=== PATIENT | male | born 1955 | race Caucasian/White ===

== ENCOUNTER 2020-02-13 19:50 | Emergency (ER) | payer MEDICARE, OTHER ==
[2020-02-13] MEDS ORDERED: Aspirin 81 MG Tab.Chew PO ONE (19:54)
[2020-02-13] MEDS ORDERED: Metoprolol Tartrate 5 MG in Sodium Chloride 0.9% 50 ML IV ONE (19:54)
[2020-02-13] MEDS ORDERED: Metoprolol Tartrate 5 MG/5 ML SDV IVPUSH ONE ×3 (19:55→20:30)
[2020-02-13] MEDS ORDERED: Nitroglycerin 0.4 MG Tab.SL SL ONE (19:56)
[2020-02-13] MEDS: Sodium Chloride 0.9% 10 ML Syringe FLUSH PRN ×2 (20:13→21:21)
[2020-02-13] MEDS ORDERED: Diltiazem 25 MG/5 ML SDV IVPUSH STA (20:54)
[2020-02-13] MEDS ORDERED: Ketorolac 15 MG/ML SDV IVPUSH STA (21:10)
--- NOTE | 2020-02-13 21:33 | EDM.PDOC ---
ED HPI GENERAL MEDICAL PROBLEM - General Chief Complaint: Chest Pain Stated Complaint: CHEST PAIN Time Seen by Provider: 02/13/20 20:15 Source of Information: Reports: Patient History Limitations: Reports: No Limitations - History of Present Illness INITIAL COMMENTS - FREE TEXT/NARRATIVE: Patient presented to the ED because of chest pain which started in the morning and got worse at night time. The pain is sharp and is worse with breathing,denies any dyspnea, N/V. Right Upper Chest Pain Score (Numeric/FACES): 4 - Related Data Allergies Allergy/AdvReac Type Severity Reaction Status Date / Time No Known Allergies Allergy Verified 02/13/20 20:26 Home Meds: Home Meds Losartan [Cozaar] 100 mg PO DAILY 02/13/20 [History] Losartan/Hydrochlorothiazide [Losartan-HCTZ 100-12.5 MG] 02/13/20 [History] Metoprolol Succinate [Toprol XL] 25 mg PO DAILY 02/13/20 [History] Nitroglycerin 0.4 mg PO PRN 02/13/20 [History] Rosuvastatin Calcium 10 mg PO DAILY 02/13/20 [History] Ticagrelor [Brilinta] 90 mg PO BID 02/13/20 [History] ED ROS GENERAL - Review of Systems Review Of Systems: See Below Constitutional: Reports: No Symptoms HEENT: Reports: No Symptoms Respiratory: Reports: No Symptoms Cardiovascular: Reports: Chest Pain Endocrine: Reports: No Symptoms GI/Abdominal: Reports: No Symptoms : Reports: No Symptoms Musculoskeletal: Reports: No Symptoms Skin: Reports: No Symptoms Neurological: Reports: No Symptoms Psychiatric: Reports: No Symptoms Hematologic/Lymphatic: Reports: No Symptoms ED EXAM, GENERAL - Physical Exam Exam: See Below Exam Limited By: No Limitations General Appearance: Alert, No Apparent Distress Eye Exam: Bilateral Eye: PERRL Ears: Normal External Exam, Normal Canal Nose: Normal Inspection, Normal Mucosa, No Blood Throat/Mouth: Normal Inspection, Normal Lips, Normal Teeth Head: Atraumatic, Normocephalic Neck: Normal Inspection, Supple, Non-Tender Respiratory/Chest: No Respiratory Distress, Lungs Clear, Normal Breath Sounds Cardiovascular: Normal Peripheral Pulses, Tachycardia, Irregularly Irregular GI/Abdominal: Normal Bowel Sounds, Soft, Non-Tender Back Exam: Normal Inspection, Full Range of Motion Extremities: Normal Inspection, Normal Range of Motion, Non-Tender Neurological: Alert, Oriented, CN II-XII Intact, Normal Cognition Psychiatric: Normal Affect, Normal Mood Course - Vital Signs Text/Narrative:: Labs reviewed and discussed with patient EKG-AFIB with RVR Trop-neg metoprolol 5 mg IV x3 doses cardizem 10 mg IV x1 dose and his HR went down from 140'90's and has been chest pain free. He is already on metoprolol succinate ER 25 mg PO daily so he will take an extra dose tonight. He is on brelynta for anticoagulation an will call his technology intern tomorrow as he might need adjustment of his metoprolol. Last Recorded V/S: Last Vital Signs Temp Pulse 86 02/13/20 21:23 Resp 20 02/13/20 20:00 BP 122/73 02/13/20 21:23 Pulse Ox 96 02/13/20 20:00 - Orders/Labs/Meds Orders: Active Orders 24 hr Category Date Time Status EKG Documentation Completion [RC] ASDIRECTED Care 02/13/20 19:54 Active Saline Lock Insert [OM.PC] Routine Oth 02/13/20 19:53 Ordered EKG 12 Lead [EK] Routine Ther 02/13/20 19:53 Ordered Labs: Laboratory Tests 02/13/20 02/13/20 02/13/20 Range/Units 19:57 19:57 19:57 WBC 7.9 (4.5-12.0) X10-3/uL RBC 4.35 (4.30-5.75) x10(6)uL Hgb 12.9 L (13.5-17.8) g/dL Hct 40.0 (30.0-51.3) % MCV 91.8 (80-96) fL MCH 29.7 (27.7-33.6) pg MCHC 32.4 (32.2-35.4) g/dL RDW 12.7 (11.5-15.5) % Plt Count 145 (125-369) X10(3)uL MPV 8.1 (7.4-10.4) fL Neut % (Auto) 84.6 H (46-82) % Lymph % (Auto) 6.6 L (13-37) % [place] % (Auto) 5.7 (4-12) % Eos % (Auto) 2 (1.0-5.0) % Baso % (Auto) 1 (0-2) % Neut # (Auto) 6.6 (1.6-8.3) # Lymph # (Auto) 0.5 L (0.6-5.0) # [place] # (Auto) 0.5 (0.0-1.3) # Eos # (Auto) 0.2 (0.0-0.8) # Baso # (Auto) 0.1 (0.0-0.2) # Sodium 142 (135-145) mmol/L Potassium 3.5 (3.5-5.3) mmol/L Chloride 105 (100-110) mmol/L Carbon Dioxide 28 (21-32) mmol/L BUN 20 H (7-18) mg/dL Creatinine 1.5 H (0.70-1.30) mg/dL Est Cr Clr Drug Dosing TNP Estimated GFR (MDRD) 47 L (>60) BUN/Creatinine Ratio 13.3 (9-20) Glucose 211 H (80-116) mg/dL Calcium 8.7 (8.6-10.2) mg/dL Magnesium 2.0 (1.8-2.5) mg/dL Total Bilirubin 0.6 (0.1-1.3) mg/dL AST 9 (5-25) IU/L ALT 18 (12-36) U/L Alkaline Phosphatase 100 (56-112) IU/L Troponin I 22.7 (4.0-60.3) pg/mL NT-Pro-B Natriuret Pep 1579 H* (<=125) pg/mL Total Protein 7.2 (6.0-8.0) g/dL Albumin 3.8 (3.2-4.6) g/dL Globulin 3.4 g/dL Albumin/Globulin Ratio 1.1 Meds: Medications Discontinued Medications Generic Name Dose Route Start Last Admin Trade Name Freq PRN Reason Stop Dose Admin Aspirin 324 mg 02/13/20 19:54 02/13/20 20:07 Aspirin PO 02/13/20 19:55 324 mg ONETIME ONE Administration Diltiazem HCl 10 mg 02/13/20 20:54 02/13/20 21:00 Diltiazem IVPUSH 02/13/20 20:55 10 mg NOW STA Administration Metoprolol Tartrate 5 mg/ 55 mls @ 100 mls/hr 02/13/20 19:54 Sodium Chloride IV 02/13/20 20:26 ONETIME ONE Ketorolac Tromethamine 15 mg 02/13/20 21:10 02/13/20 21:18 Toradol IVPUSH 02/13/20 21:11 15 mg NOW STA Administration Metoprolol Tartrate 5 mg 02/13/20 19:55 02/13/20 20:14 Lopressor IVPUSH 02/13/20 19:56 5 mg ONETIME ONE Administration Metoprolol Tartrate 5 mg 02/13/20 19:56 02/13/20 20:05 Lopressor IVPUSH 02/13/20 19:57 5 mg ONETIME ONE Administration Metoprolol Tartrate 5 mg 02/13/20 20:30 02/13/20 20:37 Lopressor IVPUSH 02/13/20 20:31 5 mg ONETIME ONE Administration Nitroglycerin 0.4 mg 02/13/20 19:56 02/13/20 21:00 Nitrostat SL 02/13/20 19:57 Not Given ONETIME ONE Sodium Chloride 10 ml 02/13/20 19:53 02/13/20 21:21 Saline Flush FLUSH 10 ml ASDIRECTED PRN Administration Keep Vein Open Departure - Departure Time of Disposition: 21:30 Disposition: Home, Self-Care 01 Condition: Good Clinical Impression: Chest pain, New onset atrial fibrillation Instructions: Atrial Fibrillation, [id number] Referrals: Gardenia Jackson TELEPHONE INTERCEPTOR OPERATOR [Primary Care Provider] - Forms: ED Department Discharge Additional Instructions: Please read discharge instructions on Atrial Fib and chest pain Take an extra dose of your metoprolol succinate ER tonight Call your technology intern tomorrow and tell him that you have a New Onset Atrial Fib - My Orders Last 24 Hours: My Active Orders 02/13/20 19:53 Saline Lock Insert [OM.PC] Routine EKG 12 Lead [EK] Routine 02/13/20 19:54 EKG Documentation Completion [RC] ASDIRECTED - Assessment/Plan Last 24 Hours: My Active Orders 02/13/20 19:53 Saline Lock Insert [OM.PC] Routine EKG 12 Lead [EK] Routine 02/13/20 19:54 EKG Documentation Completion [RC] ASDIRECTED
--- NOTE | 2020-02-14 10:09 | CR ---
INDICATION: Chest pain. CHEST ONE VIEW: AP upright portable view of the chest, 02/13/2020-no comparison. Overlying EKG leads are noted. The heart is enlarged. Poor inspiration emphasizes the heart size however. Some linear density at the right lung base may represent thickening of the pleura at the minor fissure. It is difficult to exclude minimal patchy pneumonia and possibly pleuritis at the right lower lung field. Full inspiration PA and lateral views of the chest may be helpful when clinically possible. The aorta is tortuous with minimal calcification in the arch. IMPRESSION: 1. Cannot exclude pneumonia and pleuritis at the right lung base. 2. ASHD with cardiomegaly. MTDD
== END 2020-02-13 21:35 | disposition home or self-care (01) ==
LOC: FB.ED 19:50
DX: I48.91 Unspecified atrial fibrillation (principal); Z79.899 Other long term (current) drug therapy
CPT/HCPCS: 36415; 71045; 80053; 83735; 83880; 84484; 85025; 93005; 96374; 96375; 96376; 99285; A9270; J1885; J3490

== ENCOUNTER 2021-04-20 08:49 | Emergency (ER) | payer MEDICARE, OTHER ==
[2021-04-20] MEDS ORDERED: Ondansetron 4 MG/2 ML SDV IVPUSH ONE (09:28)
[2021-04-20] MEDS ORDERED: Sodium Chloride 0.9% 1,000 ML IV SCH (09:30)
--- NOTE | 2021-04-20 09:30 | PCM.EKG ---
#1 Interpretation EKG Date: 04/20/21 Time: 08:52 EKG Interpretation Comments: Sinus rhythm, rate 129, normal axis, no obvious ST-T segment abnormalities, poor baseline
--- NOTE | 2021-04-20 09:53 | EDM.PDOC ---
ED HPI GENERAL MEDICAL PROBLEM - General Stated Complaint: COVID SYMPTOMS Time Seen by Provider: 04/20/21 09:39 Source of Information: Reports: Patient History Limitations: Reports: No Limitations - History of Present Illness INITIAL COMMENTS - FREE TEXT/NARRATIVE: 65-year-old gentleman came to the emergency department due to a 12-day history of upper respiratory symptoms. He states that he attended his daughter's wedding and several days later began to have upper respiratory symptoms including cough, rhinorrhea, sore throat. The symptoms started on or about April 08, 2021. The last 4 to 5 days the patient has become more ill. He lost his sense of taste and smell and has not been able to eat or drink much. He has been feeling weak. He thinks that his daughters may have tested positive for COVID-19 recently. His , at home, also has similar symptoms. He does have a history of heart disease with STEMI. His last echocardiogram was December 2020. Ejection fraction was 60 to 65%. Review of past medical records shows that he does have a history of elevated BNP. Presentation today the patient is tachycardic, short of breath, diaphoretic, weak, has tremors. R flank Pain Score (Numeric/FACES): 2 - Related Data Allergies Allergy/AdvReac Type Severity Reaction Status Date / Time No Known Allergies Allergy Verified 04/20/21 09:29 Home Meds: Home Meds Losartan [Cozaar] 100 mg PO DAILY 02/13/20 [History] Metoprolol Succinate [Toprol XL] 100 mg PO DAILY 02/13/20 [History] Nitroglycerin 0.4 mg PO ASDIRECTED PRN 02/13/20 [History] Rosuvastatin Calcium 10 mg PO DAILY 02/13/20 [History] Ondansetron [Zofran ODT] 4 mg PO Q6H PRN #24 tab.dis 04/20/21 [Rx] Warfarin [Coumadin] 5 mg PO SUTUTHSA 04/20/21 [History] Warfarin [Coumadin] 7.5 mg PO MOWEFR 04/20/21 [History] amLODIPine [Norvasc] 5 mg PO DAILY 04/20/21 [History] Past Medical History Cardiovascular History: Reports: Stents Other Cardiovascular History: 4 stents placed 12/2019 Respiratory History: Reports: None - Past Surgical History Male Surgical History: Reports: Prostatectomy ED ROS GENERAL - Review of Systems Review Of Systems: See Below Constitutional: Reports: Fever, Chills, Malaise, Weakness Respiratory: Reports: Shortness of Breath, Pleuritic Chest Pain, Cough Cardiovascular: Reports: No Symptoms Endocrine: Reports: No Symptoms GI/Abdominal: Reports: Anorexia, Diarrhea : Reports: No Symptoms Musculoskeletal: Reports: Muscle Pain, Muscle Stiffness Skin: Reports: No Symptoms Neurological: Reports: Weakness Psychiatric: Reports: No Symptoms Hematologic/Lymphatic: Reports: No Symptoms Immunologic: Reports: No Symptoms ED EXAM, GENERAL - Physical Exam Exam: See Below Exam Limited By: No Limitations General Appearance: Alert, Mild Distress Eye Exam: Bilateral Eye: EOMI Neck: Normal Inspection. No: Lymphadenopathy (R), Lymphadenopathy (L) Respiratory/Chest: Lungs Clear, Decreased Breath Sounds Cardiovascular: No Gallop, No Murmur, Tachycardia GI/Abdominal: Normal Bowel Sounds, Non-Tender Back Exam: Normal Inspection. No: CVA Tenderness (R), CVA Tenderness (L) Extremities: Pedal Edema, Other (1+ pitting edema bilateral lower extremity) Neurological: Alert, Oriented, CN II-XII Intact, Normal Cognition Psychiatric: Normal Affect, Normal Mood Skin Exam: Warm, Dry, Intact Course - Vital Signs Text/Narrative:: Review of labs is consistent with viral infection including significantly elevated CRP, CPK, and LDH. Patient is positive for COVID-19. Hest x-ray consistent with COVID-19. Patient was given his morning blood pressure medication and his heart rate and blood pressure improved significantly. Patient has not required supplemental oxygen during his stay and his O2 sats on room air have slightly improved and are currently at 93%. D-dimer is negative. Patient is on Coumadin therapy secondary to atrial fibrillation. Last Recorded V/S: Last Vital Signs Temp 38.1 C 04/20/21 08:50 Pulse 111 H 04/20/21 10:49 Resp 28 H 04/20/21 08:50 BP 156/86 H 04/20/21 10:50 Pulse Ox 94 L 04/20/21 08:50 - Orders/Labs/Meds Orders: Active Orders 24 hr Category Date Time Status EKG Documentation Completion [RC] ASDIRECTED Care 04/20/21 09:37 Active CXR [Chest 1V Frontal] [CR] Stat Exams 04/20/21 10:33 Taken INR,PT,PROTHROMBIN TIME [COAG] Stat Lab 04/20/21 10:27 Ordered Lactated Ringers [Ringers, Lactated] 1,000 ml Med 04/20/21 10:30 Active IV ASDIRECTED Sodium Chloride 0.9% [Normal Saline] 1,000 ml Med 04/20/21 09:30 Active IV ASDIRECTED EKG 12 Lead [EK] Routine Ther 04/20/21 09:37 Ordered Medication Orders Sodium Chloride (Normal Saline) 1,000 mls @ 999 mls/hr IV ASDIRECTED MALLORIE Last Admin: 04/20/21 09:20 Dose: 999 mls/hr Documented by: ABRAHAM Lactated Ringer's (Ringers, Lactated) 1,000 mls @ 150 mls/hr IV ASDIRECTED MALLORIE Last Admin: 04/20/21 10:30 Dose: 150 mls/hr Documented by: ABRAHAM Labs: Laboratory Tests 04/20/21 04/20/21 04/20/21 Range/Units 08:55 08:55 08:55 WBC 8.9 (3.2-10.1) x10-3/uL RBC 4.90 (3.90-5.90) x10(6)uL Hgb 14.9 (12.9-17.7) g/dL Hct 43.9 (38.3-50.1) % MCV 89.6 (80.8-98.7) fL MCH 30.5 (27.0-33.3) pg MCHC 34.0 (28.7-35.3) g/dL RDW 13.8 (12.4-15.0) % Plt Count 162 (117-477) x10(3)uL MPV 8.8 (6.7-11.0) fL Neut % (Auto) 88.1 H (40.3-71.8) % Lymph % (Auto) 4.9 L (15.8-45.3) % [place] % (Auto) 6.7 (5.5-15.2) % Eos % (Auto) 0.1 (0.1-6.8) % Baso % (Auto) 0.2 L (0.3-3.8) % Neut # (Auto) 7.9 H (1.7-6.9) x10-3/uL Lymph # (Auto) 0.4 L (0.5-4.5) x10-3/uL [place] # (Auto) 0.6 (0.0-1.2) x10-3/uL Eos # (Auto) 0.0 (0.0-0.6) x10-3/uL Baso # (Auto) 0.0 (0.0-0.3) x10-3/uL D-Dimer, Quantitative (0.0-0.59) mg/LFEU Sodium 141 (135-145) mmol/L Potassium 3.7 (3.5-5.3) mmol/L Chloride 102 (100-110) mmol/L Carbon Dioxide 23 (21-32) mmol/L BUN 36 H D (7-18) mg/dL Creatinine 1.8 H (0.70-1.30) mg/dL Est Cr Clr Drug Dosing 37.23 mL/min Estimated GFR (MDRD) 38 L (>60) BUN/Creatinine Ratio 20.0 (9-20) Glucose 124 H D (80-116) mg/dL Calcium 8.8 (8.6-10.2) mg/dL Magnesium (1.8-2.5) mg/dL Total Bilirubin 0.8 (0.1-1.3) mg/dL AST 26 H D (5-25) IU/L ALT 25 D (12-36) U/L Alkaline Phosphatase 92 (56-112) IU/L Lactate Dehydrogenase (85-227) U/L Creatine Kinase (60-160) IU/L Troponin I (4.0-60.3) pg/mL C-Reactive Protein 12.1 H* (0.5-0.9) mg/dL NT-Pro-B Natriuret Pep 159 H (<=125) pg/mL Total Protein 7.6 (6.0-8.0) g/dL Albumin 3.4 (3.2-4.6) g/dL Globulin 4.2 g/dL Albumin/Globulin Ratio 0.8 SARS-CoV-2 RNA (JIL) (NEGATIVE) 04/20/21 04/20/21 04/20/21 Range/Units 08:55 08:55 08:55 WBC (3.2-10.1) x10-3/uL RBC (3.90-5.90) x10(6)uL Hgb (12.9-17.7) g/dL Hct (38.3-50.1) % MCV (80.8-98.7) fL MCH (27.0-33.3) pg MCHC (28.7-35.3) g/dL RDW (12.4-15.0) % Plt Count (117-477) x10(3)uL MPV (6.7-11.0) fL Neut % (Auto) (40.3-71.8) % Lymph % (Auto) (15.8-45.3) % [place] % (Auto) (5.5-15.2) % Eos % (Auto) (0.1-6.8) % Baso % (Auto) (0.3-3.8) % Neut # (Auto) (1.7-6.9) x10-3/uL Lymph # (Auto) (0.5-4.5) x10-3/uL [place] # (Auto) (0.0-1.2) x10-3/uL Eos # (Auto) (0.0-0.6) x10-3/uL Baso # (Auto) (0.0-0.3) x10-3/uL D-Dimer, Quantitative 0.57 (0.0-0.59) mg/LFEU Sodium (135-145) mmol/L Potassium (3.5-5.3) mmol/L Chloride (100-110) mmol/L Carbon Dioxide (21-32) mmol/L BUN (7-18) mg/dL Creatinine (0.70-1.30) mg/dL Est Cr Clr Drug Dosing mL/min Estimated GFR (MDRD) (>60) BUN/Creatinine Ratio (9-20) Glucose (80-116) mg/dL Calcium (8.6-10.2) mg/dL Magnesium (1.8-2.5) mg/dL Total Bilirubin (0.1-1.3) mg/dL AST (5-25) IU/L ALT (12-36) U/L Alkaline Phosphatase (56-112) IU/L Lactate Dehydrogenase 380 H (85-227) U/L Creatine Kinase 249 H (60-160) IU/L Troponin I 19.0 (4.0-60.3) pg/mL C-Reactive Protein (0.5-0.9) mg/dL NT-Pro-B Natriuret Pep (<=125) pg/mL Total Protein (6.0-8.0) g/dL Albumin (3.2-4.6) g/dL Globulin g/dL Albumin/Globulin Ratio SARS-CoV-2 RNA (JIL) (NEGATIVE) 04/20/21 04/20/21 Range/Units 08:55 09:00 WBC (3.2-10.1) x10-3/uL RBC (3.90-5.90) x10(6)uL Hgb (12.9-17.7) g/dL Hct (38.3-50.1) % MCV (80.8-98.7) fL MCH (27.0-33.3) pg MCHC (28.7-35.3) g/dL RDW (12.4-15.0) % Plt Count (117-477) x10(3)uL MPV (6.7-11.0) fL Neut % (Auto) (40.3-71.8) % Lymph % (Auto) (15.8-45.3) % [place] % (Auto) (5.5-15.2) % Eos % (Auto) (0.1-6.8) % Baso % (Auto) (0.3-3.8) % Neut # (Auto) (1.7-6.9) x10-3/uL Lymph # (Auto) (0.5-4.5) x10-3/uL [place] # (Auto) (0.0-1.2) x10-3/uL Eos # (Auto) (0.0-0.6) x10-3/uL Baso # (Auto) (0.0-0.3) x10-3/uL D-Dimer, Quantitative (0.0-0.59) mg/LFEU Sodium (135-145) mmol/L Potassium (3.5-5.3) mmol/L Chloride (100-110) mmol/L Carbon Dioxide (21-32) mmol/L BUN (7-18) mg/dL Creatinine (0.70-1.30) mg/dL Est Cr Clr Drug Dosing mL/min Estimated GFR (MDRD) (>60) BUN/Creatinine Ratio (9-20) Glucose (80-116) mg/dL Calcium (8.6-10.2) mg/dL Magnesium 2.1 (1.8-2.5) mg/dL Total Bilirubin (0.1-1.3) mg/dL AST (5-25) IU/L ALT (12-36) U/L Alkaline Phosphatase (56-112) IU/L Lactate Dehydrogenase (85-227) U/L Creatine Kinase (60-160) IU/L Troponin I (4.0-60.3) pg/mL C-Reactive Protein (0.5-0.9) mg/dL NT-Pro-B Natriuret Pep (<=125) pg/mL Total Protein (6.0-8.0) g/dL Albumin (3.2-4.6) g/dL Globulin g/dL Albumin/Globulin Ratio SARS-CoV-2 RNA (JIL) Positive H (NEGATIVE) Meds: Medications Generic Name Dose Route Start Last Admin Trade Name Shellie PRN Reason Stop Dose Admin Sodium Chloride 1,000 mls @ 999 mls/hr 04/20/21 09:30 04/20/21 09:20 Normal Saline IV 999 mls/hr ASDIRECTED MALLORIE Administration Lactated Ringer's 1,000 mls @ 150 mls/hr 04/20/21 10:30 04/20/21 10:30 Ringers, Lactated IV 150 mls/hr ASDIRECTED M[place]IE Administration Discontinued Medications Generic Name Dose Route Start Last Admin Trade Name Shellie PRN Reason Stop Dose Admin Acetaminophen 650 mg 04/20/21 10:23 04/20/21 10:49 Acetaminophen 325 Mg Tab PO 04/20/21 10:24 650 mg NOW ONE Administration Amlodipine Besylate 5 mg 04/20/21 10:30 04/20/21 10:50 Amlodipine 5 Mg Tab PO 04/20/21 10:31 5 mg ONETIME ONE Administration Losartan Potassium 100 mg 04/20/21 10:30 04/20/21 10:50 Losartan 50 Mg Tab PO 04/20/21 10:31 100 mg ONETIME ONE Administration Metoprolol Succinate 100 mg 04/20/21 10:29 04/20/21 10:49 Metoprolol Succinate 100 Mg Tab.Er PO 04/20/21 10:30 100 mg ONETIME ONE Administration Ondansetron HCl 4 mg 04/20/21 09:28 04/20/21 09:40 Ondansetron 4 Mg/2 Ml Sdv IVPUSH 04/20/21 09:29 4 mg ONETIME ONE Administration Departure - Departure Time of Disposition: 12:22 Disposition: Home, Self-Care 01 Condition: Fair Clinical Impression: COVID-19, Elevated C-reactive protein (CRP), Acute kidney injury, Rhabdomyolysis due to COVID-19 - Discharge Information *PRESCRIPTION DRUG MONITORING PROGRAM REVIEWED*: Not Applicable *COPY OF PRESCRIPTION DRUG MONITORING REPORT IN PATIENT HANNAH: Not Applicable Prescriptions: Ondansetron [Zofran ODT] 4 mg PO Q6H PRN #24 tab.dis PRN Reason: Nausea Instructions: Rhabdomyolysis, COVID-19 Vaccine Information, Symptoms of Coronavirus - [facility] (10/21/2020), Acute Kidney Injury, Adult, 10 Things You Can Do to Manage Your COVID-19 Symptoms at Home - [facility] (02/28/2020), What You Should K now About COVID-19 to Protect Yourself and Others - [facility], Prone Position Therapy Referrals: Gardenia Jackson, RIGHT OF WAY SUPERVISOR [Primary Care Provider] - Additional Instructions: Please strictly self isolate yourself to avoid spreading COVID-19. Please read and follow directions and handouts. Please follow-up with your primary care physician tomorrow and inform him of your situation. Note that your INR is at 3.7. Drink plenty of fluids, mostly water. Use ibuprofen and aspirin sparingly or not at all. Use Tylenol as directed for pain and fever. Zofran as directed for nausea/vomiting. Sepsis Event Note (ED) - Evaluation Sepsis Screening Result: Possible Sepsis Risk - Focused Exam Vital Signs: Vital Signs Temp Pulse Pulse Resp BP BP Pulse Ox 04/20/21 10:50 156/86 H 04/20/21 10:49 111 H 156/86 H 04/20/21 08:50 38.1 C 142 H 28 H 155/98 H 94 L - My Orders Last 24 Hours: My Active Orders 04/20/21 09:30 Sodium Chloride 0.9% [Normal Saline] 1,000 ml IV ASDIRECTED 04/20/21 09:37 EKG Documentation Completion [RC] ASDIRECTED EKG 12 Lead [EK] Routine 04/20/21 10:27 INR,PT,PROTHROMBIN TIME [COAG] Stat 04/20/21 10:30 Lactated Ringers [Ringers, Lactated] 1,000 ml IV ASDIRECTED 04/20/21 10:33 CXR [Chest 1V Frontal] [CR] Stat - Assessment/Plan Last 24 Hours: My Active Orders 04/20/21 09:30 Sodium Chloride 0.9% [Normal Saline] 1,000 ml IV ASDIRECTED 04/20/21 09:37 EKG Documentation Completion [RC] ASDIRECTED EKG 12 Lead [EK] Routine 04/20/21 10:27 INR,PT,PROTHROMBIN TIME [COAG] Stat 04/20/21 10:30 Lactated Ringers [Ringers, Lactated] 1,000 ml IV ASDIRECTED 04/20/21 10:33 CXR [Chest 1V Frontal] [CR] Stat
[2021-04-20] MEDS ORDERED: Acetaminophen 325 MG Tab PO ONE (10:23)
[2021-04-20] MEDS ORDERED: Metoprolol Succinate 100 MG Tab.ER PO ONE (10:29)
[2021-04-20] MEDS ORDERED: Losartan 50 MG Tab PO ONE (10:30)
[2021-04-20] MEDS ORDERED: amLODIPine 5 MG Tab PO ONE (10:30)
[2021-04-20] MEDS ORDERED: Lactated Ringers 1,000 ML IV SCH (10:30)
== END 2021-04-20 12:50 | disposition home or self-care (01) ==
LOC: FB.ED 08:49
DX: U07.1 COVID-19 (principal); M62.82 Rhabdomyolysis; R79.82 Elevated C-reactive protein (CRP); N17.9 Acute kidney failure, unspecified; I25.2 Old myocardial infarction; Z79.899 Other long term (current) drug therapy
CPT/HCPCS: 36415; 71045; 80053; 82550; 83615; 83735; 83880; 84484; 85025; 85379; 85610; 86140; 93005; 96374; 99285; A9270; J2405; J7030; J7120; U0002

== ENCOUNTER 2021-07-08 09:28 | Day surgery (SDC) | payer MEDICARE, OTHER ==
[2021-07-08] MEDS ORDERED: Midazolam 1 MG/ML 2 ML SDV IV ONE (09:29)
[2021-07-08] MEDS ORDERED: fentaNYL 100 MCG/2 ML SDV IV ONE (09:29)
[2021-07-08] MEDS ORDERED: Lactated Ringers 1,000 ML IV PRN (09:30)
[2021-07-08] MEDS ORDERED: Sodium Chloride 0.9% 10 ML Syringe FLUSH PRN (09:30)
[2021-07-08] MEDS ORDERED: acetaZOLAMIDE 500 MG Cap.ER ONE (12:12)
--- NOTE | 2021-07-08 12:53 | OR ---
DATE OF OPERATION: 07/08/2021 SURGEON: Shelley Elliott MD PREOPERATIVE DIAGNOSIS: Visually significant cataract, left eye. POSTOPERATIVE DIAGNOSIS: Visually significant cataract, left eye. PROCEDURES PERFORMED: Phacoemulsification with intraocular lens placement, left eye. ASSISTANTS: None. ANESTHESIA: Local with sedation. COMPLICATIONS: None. BLOOD LOSS: None. IMPLANTS: A pre-loaded DCB00 19.5 diopter lens implanted. CDE: 2.06. DESCRIPTION OF PROCEDURE: After risks and benefits were reviewed with the patient, consent was obtained in the preoperative area, and the operative eye was marked with a surgical pen. In the preoperative area, a pledget was used to dilate the pupil consisting of a mixture of phenylephrine 10%, cyclopentolate 2%, moxifloxacin 0.5%, and bupivacaine 0.75%. The patient was taken to the operating room, where a time-out was performed, and the patient was placed under monitored anesthesia care. Topical tetracaine was used for anesthesia. The operative eye was prepped and draped for ophthalmic surgery, and the microscope was brought into position and focused. A paracentesis incision was made, followed by injection of preservative-free 1% lidocaine into the anterior chamber, followed by injection of Viscoat into the anterior chamber. A microkeratome blade was used to make a corneal limbal incision temporally. A cystotome was used to make the beginning of the capsulorrhexis, which was carried around 360 degrees in a curvilinear fashion using Utrata forceps. A Scherer cannula with BSS was used to hydrodissect and hydrodelineate the nucleus. The nucleus was removed in a divide and conquer manner using phacoemulsification. Irrigation and aspiration were used to remove the remaining cortical material. Provisc was used to inflate the capsular bag, and a pre-loaded DCB00 19.5 diopter lens, serial number [id number] was injected into the capsular bag. A Sinskey hook was used to position and center the lens. Next, irrigation and aspiration was used to remove any remaining viscoelastic and cortical material from the anterior chamber. BSS on a cannula was used to inflate the anterior chamber and hydrate the wound. The wound was checked and found to be watertight. 1 mg of Moxifloxacin was injected into the anterior chamber. Drapes were removed and the eye was cleaned. A drop of brimonidine 0.2% and a drop of TobraDex was placed. The eye was shielded, and the patient was taken to the recovery room in stable condition. /[id number]/TAMMY
== END 2021-07-08 12:32 | disposition home or self-care (01) ==
LOC: FB.SDS 09:28
PROVIDERS: ATTEND Ophthalmology
DX: H25.812 Combined forms of age-related cataract, left eye (principal); H01.001 Unspecified blepharitis right upper eyelid; H01.004 Unspecified blepharitis left upper eyelid; H52.03 Hypermetropia, bilateral; I25.10 Atherosclerotic heart disease of native coronary artery without angina pectoris; I11.0 Hypertensive heart disease with heart failure; N18.9 Chronic kidney disease, unspecified; E78.5 Hyperlipidemia, unspecified; G47.33 Obstructive sleep apnea (adult) (pediatric); I25.2 Old myocardial infarction; I48.92 Unspecified atrial flutter; Z86.010 Personal history of colon polyps; Z79.899 Other long term (current) drug therapy; Z79.82 Long term (current) use of aspirin; Z88.8 Allergy status to other drugs, medicaments and biological substances; Z91.011 Allergy to milk products
CPT/HCPCS: 00142-QZ; J2250; J3010; V2632

== ENCOUNTER 2021-08-15 16:14 | Emergency (ER) | payer MEDICARE, OTHER ==
[2021-08-15] MEDS ORDERED: Sodium Chloride 0.9% 10 ML Syringe FLUSH PRN (16:15)
[2021-08-15] MEDS ORDERED: Aspirin 81 MG Tab.Chew PO ONE (16:15)
[2021-08-15] MEDS ORDERED: Nitroglycerin 0.4 MG Tab.SL SL PRN (16:31)
--- NOTE | 2021-08-15 17:24 | EDM.PDOC ---
ED HPI GENERAL MEDICAL PROBLEM - General Chief Complaint: Chest Pain Stated Complaint: CHEST PAIN Time Seen by Provider: 08/15/21 16:35 Source of Information: Reports: Patient History Limitations: Reports: No Limitations - History of Present Illness INITIAL COMMENTS - FREE TEXT/NARRATIVE: Patient presented to the ED because of chest pain which started at 1999 last night. the pain is a dull ache,3/10. There is no associated nausea,vomiting, dyspnea. No fever, chills,cough or cold. He had an NSTEMI with stent placement on 01/15/20 at [facility]. Chest Pain Score (Numeric/FACES): 3 - Related Data Allergies Allergy/AdvReac Type Severity Reaction Status Date / Time [id number] Reductase AdvReac Muscle Verified 07/04/21 10:27 Inhibitor Aches Home Meds: Home Meds Losartan [Cozaar] 100 mg PO DAILY 02/13/20 [History] Metoprolol Succinate [Toprol XL] 100 mg PO DAILY 02/13/20 [History] Nitroglycerin 0.4 mg PO ASDIRECTED PRN 02/13/20 [History] Rosuvastatin Calcium 10 mg PO BEDTIME 02/13/20 [History] Ondansetron [Zofran ODT] 4 mg PO Q6H PRN #24 tab.dis 04/20/21 [Rx] Warfarin [Coumadin] 5 mg PO SUTUTHSA 04/20/21 [History] Warfarin [Coumadin] 7.5 mg PO MOWEFR 04/20/21 [History] amLODIPine [Norvasc] 5 mg PO DAILY 04/20/21 [History] Aspirin 81 mg PO DAILY 07/04/21 [History] Cholecalciferol (Vitamin D3) [Vitamin D3] 1,000 unit PO DAILY 07/04/21 [History] Multivitamin 1 tab PO DAILY 07/04/21 [History] Past Medical History HEENT History: Reports: Cataract Cardiovascular History: Reports: Afib, CAD, High Cholesterol, Hypertension, [place], Stents Other Cardiovascular History: 4 stents placed 12/2019 Respiratory History: Reports: Sleep Apnea Gastrointestinal History: Reports: Colon Polyp Genitourinary History: Reports: Chronic Renal Insuffiency, Renal Calculus Musculoskeletal History: Reports: Arthritis Neurological History: Reports: None Psychiatric History: Reports: Depression Endocrine/Metabolic History: Reports: Obesity/BMI 30+ Hematologic History: Reports: Anticoagulation Therapy Immunologic History: Reports: None Oncologic (Cancer) History: Reports: Prostate Dermatologic History: Reports: None - Infectious Disease History Infectious Disease History: Reports: Chicken Pox, Measles, Mumps - Past Surgical History Head Surgeries/Procedures: Reports: None HEENT Surgical History: Reports: Cataract Surgery, Eye Surgery, Tonsillectomy Other HEENT Surgeries/Procedures: R lens replaced Cardiovascular Surgical History: Reports: Coronary Artery Stent Respiratory Surgical History: Reports: None GI Surgical History: Reports: Appendectomy, Colonoscopy Male Surgical History: Reports: Prostatectomy Endocrine Surgical History: Reports: None Neurological Surgical History: Reports: None Musculoskeletal Surgical History: Reports: None Oncologic Surgical History: Reports: None Dermatological Surgical History: Reports: None Social & Family History - Family History Family Medical History: No Pertinent Family History - Caffeine Use Caffeine Use: Reports: Soda ED ROS GENERAL - Review of Systems Review Of Systems: See Below Constitutional: Reports: No Symptoms HEENT: Reports: No Symptoms Respiratory: Reports: No Symptoms Cardiovascular: Reports: Chest Pain Endocrine: Reports: No Symptoms GI/Abdominal: Reports: No Symptoms : Reports: No Symptoms Musculoskeletal: Reports: No Symptoms Skin: Reports: No Symptoms Neurological: Reports: No Symptoms Psychiatric: Reports: No Symptoms ED EXAM, GENERAL - Physical Exam Exam: See Below Exam Limited By: No Limitations General Appearance: Alert, No Apparent Distress Eye Exam: Bilateral Eye: PERRL Ears: Normal External Exam, Normal Canal Nose: Normal Inspection, Normal Mucosa, No Blood Throat/Mouth: Normal Inspection, Normal Lips, Normal Teeth, Normal Oropharynx, Normal Voice Head: Atraumatic, Normocephalic Neck: Normal Inspection, Supple, Non-Tender, Full Range of Motion Respiratory/Chest: No Respiratory Distress, Lungs Clear, Normal Breath Sounds, No Accessory Muscle Use, Chest Non-Tender Cardiovascular: Normal Peripheral Pulses, Regular Rate, Rhythm, No Edema, No Gallop, No JVD, No Murmur, No Rub GI/Abdominal: Normal Bowel Sounds, Soft, Non-Tender, No Organomegaly, No Distention, No Abnormal Bruit Back Exam: Normal Inspection, Full Range of Motion Extremities: Normal Inspection, Normal Range of Motion, Non-Tender, No Pedal Edema, Normal Capillary Refill Neurological: Alert, Oriented, CN II-XII Intact, Normal Reflexes, No Motor/Sensory Deficits #1 Interpretation EKG Date: 08/15/21 Time: 16:26 Rhythm: NSR Rate (Beats/Min): 67 [place]: Normal P-Wave: Present QRS: Normal ST-T: Normal QT: Normal CA/PQ Interval: 67 Comparison: No Change EKG Interpretation Comments: NSR Course - Vital Signs Text/Narrative:: Lab/EKG result was reviewed and discussed with patient NTG 04 mg SL x2 Aspirin 324 mg PO x1 Last Recorded V/S: Last Vital Signs Temp 36.6 C 08/15/21 16:30 Pulse 66 08/15/21 17:30 Resp 16 08/15/21 17:30 BP 116/67 08/15/21 17:30 Pulse Ox 98 08/15/21 17:30 - Orders/Labs/Meds Orders: Active Orders 24 hr Category Date Time Status Saline Lock Insert [OM.PC] Routine Oth 08/15/21 16:15 Ordered EKG 12 Lead [EK] Routine Ther 08/15/21 16:19 Ordered Labs: Laboratory Tests 08/15/21 08/15/21 08/15/21 Range/Units 16:30 16:30 16:30 WBC 5.2 (3.2-10.1) x10-3/uL RBC 4.54 (3.90-5.90) x10(6)uL Hgb 14.1 (12.9-17.7) g/dL Hct 41.0 (38.3-50.1) % MCV 90.2 (80.8-98.7) fL MCH 31.0 (27.0-33.3) pg MCHC 34.3 (28.7-35.3) g/dL RDW 13.4 (12.4-15.0) % Plt Count 163 (117-477) x10(3)uL MPV 7.8 (6.7-11.0) fL Neut % (Auto) 71.2 (40.3-71.8) % Lymph % (Auto) 13.5 L (15.8-45.3) % [place] % (Auto) 11.4 (5.5-15.2) % Eos % (Auto) 3.5 (0.1-6.8) % Baso % (Auto) 0.4 (0.3-3.8) % Neut # (Auto) 3.7 (1.7-6.9) x10-3/uL Lymph # (Auto) 0.7 (0.5-4.5) x10-3/uL [place] # (Auto) 0.6 (0.0-1.2) x10-3/uL Eos # (Auto) 0.2 (0.0-0.6) x10-3/uL Baso # (Auto) 0.0 (0.0-0.3) x10-3/uL PT 20.5 H (9.0-11.1) sec INR 1.99 H (1.00-1.24) Sodium 143 (135-145) mmol/L Potassium 3.9 (3.5-5.3) mmol/L Chloride 108 D (100-110) mmol/L Carbon Dioxide 30 (21-32) mmol/L BUN 23 H D (7-18) mg/dL Creatinine 1.7 H (0.70-1.30) mg/dL Est Cr Clr Drug Dosing TNP Estimated GFR (MDRD) 40 L (>60) BUN/Creatinine Ratio 13.5 (9-20) Glucose 71 L (80-116) mg/dL Calcium 8.8 (8.6-10.2) mg/dL Total Bilirubin 0.5 (0.1-1.3) mg/dL AST 15 D (5-25) IU/L ALT 25 (12-36) U/L Alkaline Phosphatase 96 (56-112) IU/L Troponin I (4.0-60.3) pg/mL Total Protein 7.2 (6.0-8.0) g/dL Albumin 3.7 (3.2-4.6) g/dL Globulin 3.5 g/dL Albumin/Globulin Ratio 1.1 08/15/21 Range/Units 16:30 WBC (3.2-10.1) x10-3/uL RBC (3.90-5.90) x10(6)uL Hgb (12.9-17.7) g/dL Hct (38.3-50.1) % MCV (80.8-98.7) fL MCH (27.0-33.3) pg MCHC (28.7-35.3) g/dL RDW (12.4-15.0) % Plt Count (117-477) x10(3)uL MPV (6.7-11.0) fL Neut % (Auto) (40.3-71.8) % Lymph % (Auto) (15.8-45.3) % [place] % (Auto) (5.5-15.2) % Eos % (Auto) (0.1-6.8) % Baso % (Auto) (0.3-3.8) % Neut # (Auto) (1.7-6.9) x10-3/uL Lymph # (Auto) (0.5-4.5) x10-3/uL [place] # (Auto) (0.0-1.2) x10-3/uL Eos # (Auto) (0.0-0.6) x10-3/uL Baso # (Auto) (0.0-0.3) x10-3/uL PT (9.0-11.1) sec INR (1.00-1.24) Sodium (135-145) mmol/L Potassium (3.5-5.3) mmol/L Chloride (100-110) mmol/L Carbon Dioxide (21-32) mmol/L BUN (7-18) mg/dL Creatinine (0.70-1.30) mg/dL Est Cr Clr Drug Dosing Estimated GFR (MDRD) (>60) BUN/Creatinine Ratio (9-20) Glucose (80-116) mg/dL Calcium (8.6-10.2) mg/dL Total Bilirubin (0.1-1.3) mg/dL AST (5-25) IU/L ALT (12-36) U/L Alkaline Phosphatase (56-112) IU/L Troponin I 7.4 (4.0-60.3) pg/mL Total Protein (6.0-8.0) g/dL Albumin (3.2-4.6) g/dL Globulin g/dL Albumin/Globulin Ratio Meds: Medications Discontinued Medications Generic Name Dose Route Start Last Admin Trade Name Freq PRN Reason Stop Dose Admin Aspirin 324 mg 08/15/21 16:15 08/15/21 16:15 Aspirin 81 Mg Tab.Chew PO 08/15/21 16:16 324 mg ONETIME ONE Administration Nitroglycerin 0.4 mg 08/15/21 16:31 08/15/21 16:45 Nitroglycerin 0.4 Mg Tab.Sl SL 0.4 mg Q5M PRN Administration Chest Pain Sodium Chloride 10 ml 08/15/21 16:15 08/15/21 16:45 Sodium Chloride 0.9% 10 Ml Syringe FLUSH 10 ml ASDIRECTED PRN Administration Keep Vein Open Departure - Departure Time of Disposition: 17:30 Disposition: Home, Self-Care 01 Condition: Good Clinical Impression: Chest pain Instructions: Angina, [id number] Referrals: Gardenia Jackson STEEL TURNER [Primary Care Provider] - Forms: ED Department Discharge Additional Instructions: Please read discharge instructions on chest pain Follow up with your doctor this coming week Sepsis Event Note (ED) - Focused Exam Vital Signs: Vital Signs Temp Pulse Resp BP BP Pulse Ox 08/15/21 17:30 66 16 116/67 98 08/15/21 16:45 142/82 H 08/15/21 16:30 36.6 C 69 16 151/86 H 97 - My Orders Last 24 Hours: My Active Orders 08/15/21 16:15 Saline Lock Insert [OM.PC] Routine 08/15/21 16:19 EKG 12 Lead [EK] Routine - Assessment/Plan Last 24 Hours: My Active Orders 08/15/21 16:15 Saline Lock Insert [OM.PC] Routine 08/15/21 16:19 EKG 12 Lead [EK] Routine
== END 2021-08-15 17:45 | disposition home or self-care (01) ==
LOC: FB.ED 16:14
DX: R07.9 Chest pain, unspecified (principal); I48.91 Unspecified atrial fibrillation; E78.00 Pure hypercholesterolemia, unspecified; I12.9 Hypertensive chronic kidney disease with stage 1 through stage 4 chronic kidney disease, or unspecified chronic kidney disease; N18.9 Chronic kidney disease, unspecified; I25.2 Old myocardial infarction; E66.9 Obesity, unspecified; Z68.30 Body mass index [BMI] 30.0-30.9, adult; Z95.5 Presence of coronary angioplasty implant and graft; Z88.8 Allergy status to other drugs, medicaments and biological substances; Z79.899 Other long term (current) drug therapy; Z79.82 Long term (current) use of aspirin
CPT/HCPCS: 36415; 80053; 84484; 85025; 85610; 93005; 99285; A9270